=== PATIENT | male | born 1970 | race African-American/Black ===

== ENCOUNTER 2020-06-07 10:17 | Emergency (ER) | payer OTHER, BC ==
[2020-06-07 10:35] VITALS: BP 144/93; PULSE 91; TEMP 97.6; BMI 29.1
[2020-06-07] MEDS ORDERED: KETOROLAC TROMETHAMINE 30 MG/1 ML VIAL IM ONE (10:42)
[2020-06-07] MEDS ORDERED: CYCLOBENZAPRINE HCL 10 MG TABLET (FP) PO ONE (10:42)
[2020-06-07] MEDS ORDERED: CYCLOBENZAPRINE HCL 10 MG TABLET (FP) ONE (11:00)
[2020-06-07] MEDS ORDERED: KETOROLAC TROMETHAMINE 30 MG/1 ML VIAL ONE (11:00)
== END 2020-06-07 11:45 | disposition home or self-care (01) ==
LOC: JERFT 10:17
PROC: 3E0233Z Introduction of Anti-inflammatory into Muscle, Percutaneous Approach (ICD-10-PCS; principal; 2020-06-07)
DX: M54.16 Radiculopathy, lumbar region (principal)
CPT/HCPCS: 99284-25